=== PATIENT | male | born 1970 | race Two or more races ===

== ENCOUNTER 2024-12-11 12:57 | Emergency (ER) | payer SELFPAY ==
[~2024-12-11] VITALS: Ht 172.7 cm; Wt 77.0 kg
[2024-12-11 13:02] VITALS: BP 149/82; PULSE 71; RESP 16; TEMP 98.4; O2SAT 97
== END 2024-12-11 16:14 | disposition home or self-care (01) ==
LOC: ER 12:57
DX: G92.9 Unspecified toxic encephalopathy (principal); F10.129 Alcohol abuse with intoxication, unspecified; Y90.9 Presence of alcohol in blood, level not specified
CPT/HCPCS: 99283